=== PATIENT | male | born 1940 | race Caucasian/White ===

== ENCOUNTER 2021-02-07 08:00 | Outpatient (CLI) | payer OTHER | END 2021-02-07 08:30 | disposition home or self-care (01) | LOC: PPH VACUNA 08:00 | PROVIDERS: ATTEND Emergency Medicine Pediatric Emergency Medicine | DX: Z23 Encounter for immunization (principal) ==

== ENCOUNTER 2022-02-05 10:58 | Outpatient (CLI) | payer OTHER | END 2022-02-05 11:08 | disposition home or self-care (01) | LOC: PPH VACUNA 10:58 | PROVIDERS: ATTEND Emergency Medicine Pediatric Emergency Medicine | DX: Z23 Encounter for immunization (principal) ==

== ENCOUNTER 2022-07-08 08:30 | Outpatient (CLI) | payer OTHER | END 2022-07-08 08:31 | disposition home or self-care (01) | LOC: NUCLEAR 08:30 | DX: C61 Malignant neoplasm of prostate (principal) | CPT/HCPCS: 78816; A9552 ==

== ENCOUNTER 2022-07-23 12:12 | Outpatient (CLI) | payer OTHER | END 2022-07-23 12:17 | disposition home or self-care (01) | LOC: RAD 12:12 | PROVIDERS: ATTEND Physical Medicine & Rehabilitation | DX: M17.0 Bilateral primary osteoarthritis of knee (principal) ==

== ENCOUNTER 2022-10-01 11:57 | Emergency (ER) | payer OTHER ==
[~2022-10-01] VITALS: Ht 162.6 cm; Wt 63.5 kg
[2022-10-01] MEDS ORDERED: RANEXA500 MG PO (12:32)
[2022-10-01] MEDS ORDERED: BAYER THERAPY325 MG PO (12:32)
[2022-10-01] MEDS ORDERED: LASIX20 MG PO (12:32)
[2022-10-01] MEDS ORDERED: COREG CR20 MG PO (12:33)
[2022-10-01] MEDS ORDERED: LEVO-T25 MCG PO (12:33)
[2022-10-01] MEDS ORDERED: PANTOPRAZOLE SO40 MG PO (12:34)
[2022-10-01] MEDS ORDERED: SPIRONOLACTONE25 MG PO (12:34)
[2022-10-01] MEDS ORDERED: TAMS0.4C PO (12:34)
[2022-10-01] MEDS ORDERED: TRICOR145 MG PO (12:34)
[2022-10-01] MEDS ORDERED: XTANDI40 MG PO (12:35)
[2022-10-01] MEDS ORDERED: LANTUS SOL100 UNIT/1 SQ (12:35)
[2022-10-01] MEDS ORDERED: BACTRIM DS TAB1 EACH PO ×2 (15:52→15:53)
== END 2022-10-01 16:00 | disposition home or self-care (01) ==
LOC: ER 11:57
DX: S90.424A Blister (nonthermal), right lesser toe(s), initial encounter (principal); X58.XXXA Exposure to other specified factors, initial encounter; Y93.9 Activity, unspecified; Y92.89 Other specified places as the place of occurrence of the external cause; Y99.9 Unspecified external cause status; E11.9 Type 2 diabetes mellitus without complications; Z79.4 Long term (current) use of insulin; I10 Essential (primary) hypertension; G62.9 Polyneuropathy, unspecified; Z85.46 Personal history of malignant neoplasm of prostate